=== PATIENT | female | born 1995 | race African-American/Black ===

== ENCOUNTER 2016-09-25 13:18 | Emergency (ER) | payer OTHER ==
[~2016-09-25] VITALS: Ht 167.6 cm; Wt 68.2 kg
[2016-09-25 13:21] VITALS: BP 97/68
== END 2016-09-25 19:08 | disposition left against medical advice (07) ==
LOC: EMS 13:20
DX: R10.32 Left lower quadrant pain (principal); F17.210 Nicotine dependence, cigarettes, uncomplicated; Z53.21 Procedure and treatment not carried out due to patient leaving prior to being seen by health care provider
CPT/HCPCS: 99281

== ENCOUNTER 2017-11-24 20:26 | Emergency (ER) | payer OTHER ==
[~2017-11-24] VITALS: Ht 167.6 cm; Wt 68.0 kg
[2017-11-24 21:47] VITALS: BP 124/64
== END 2017-11-24 21:49 | disposition home or self-care (01) ==
LOC: EMS 20:27 → EDSEX 20:27 → EMS 21:49
DX: M67.471 Ganglion, right ankle and foot (principal); F17.210 Nicotine dependence, cigarettes, uncomplicated
CPT/HCPCS: 99282